=== PATIENT | female | born 1980 | race Caucasian/White ===

== ENCOUNTER 2021-01-29 23:19 | Emergency (ER) | payer MEDICAID ==
[~2021-01-29] VITALS: Ht 167.6 cm; Wt 65.0 kg
[2021-01-29] MEDS ORDERED: normal saline 1000ML IV soln IVB ONE (23:25)
[2021-01-29 23:39] LABS: BASOPHILS # (AUTO) 0.2 X10'3 (0-0.2); BASOPHILS % (AUTO) 1.5 % (0-1); EOSINOPHILS # (AUTO) 0.5 X10'3 (0-0.9); EOSINOPHILS % (AUTO) 4.4 % (0-6); HEMATOCRIT 43.7 % (35.0-45.0); HEMOGLOBIN 15.1 g/dl (12.0-16.0); LYMPHOCYTES # (AUTO) 4.2 X10'3 (1.1-4.8); LYMPHOCYTES % (AUTO) 38.8 % (21-51); MEAN CORPUSCULAR HEMOGLOBIN 28.8 PG (27.0-31.0); MEAN CORPUSCULAR HGB CONC 34.7 g/dL (33.0-36.5); MEAN CORPUSCULAR VOLUME 83.1 FL (78-98); MEAN PLATELET VOLUME 7.6 FL (7.4-10.4); MONOCYTES # (AUTO) 0.8 X10'3 (0-0.9); MONOCYTES % (AUTO) 7.7 % (2-12); NEUTROPHILS # (AUTO) 5.2 X10'3 (1.8-7.7); NEUTROPHILS % (AUTO) 47.6 % (42-75); PLATELET COUNT 401 X10'3 (140-440); RED BLOOD COUNT 5.26 X10'6 (4.20-5.60); WHITE BLOOD COUNT 10.9 X10'3 (4.5-11.0)
[2021-01-29 23:48] LABS: ALANINE AMINOTRANSFERASE 15 U/L (12-78); ALBUMIN 3.6 G/DL (3.4-5.0); ALKALINE PHOSPHATASE 85 IU/L (46-116); ANION GAP 6 (8-16); ASPARTATE AMINO TRANSFERASE 13 U/L (10-37); BILIRUBIN,TOTAL 0.5 MG/DL (0.1-1.0); BLOOD UREA NITROGEN 12 MG/DL (7-18); BUN/CREATININE RATIO 11.8 (6.6-38.0); CALCIUM 8.1 MG/DL (8.5-10.1); CHLORIDE 105 MMOL/L (99-107); CREATININE 1.02 MG/DL (0.40-0.90); ETHANOL < 0.010 GM/DL (0.0-0.010); GLUCOSE 127 MG/DL (70-104); POTASSIUM 3.5 MMOL/L (3.5-5.1); SODIUM 138 MMOL/L (135-145); TOTAL CARBON DIOXIDE 27.4 MMOL/L (24-32); TOTAL PROTEIN 7.3 G/DL (6.4-8.2); eGFR 60 ML/MIN
[2021-01-30] MEDS ORDERED: naloxone 2mg/2ml inj IV STA (00:01)
[2021-01-30] MEDS ORDERED: proCHLORperazine 10 MG/2 ml inj IV ONE (00:30)
[2021-01-30 00:57] VITALS: BP 114/80
--- NOTE | 2021-01-30 01:30 | NUR ---
PATIENT WAS ABLE TO DRINK 240mL OF WATER WITH OUT ISSUE po CHALLENGE COMPLETE DR. Ayers AWARE DC READY
== END 2021-01-30 01:45 | disposition home or self-care (01) ==
LOC: ER 23:19
DX: T40.411A Poisoning by fentanyl or fentanyl analogs, accidental (unintentional), initial encounter (principal); J96.01 Acute respiratory failure with hypoxia; J45.909 Unspecified asthma, uncomplicated; G89.29 Other chronic pain; F14.90 Cocaine use, unspecified, uncomplicated; Y92.89 Other specified places as the place of occurrence of the external cause
CPT/HCPCS: 36415; 71045; 80053; 80320; 85025; 93005; 96361; 96374; 99285; J0780; J7030

== ENCOUNTER 2024-12-09 03:18 | Emergency (ER) | payer MEDICAID ==
[~2024-12-09] VITALS: Ht 167.6 cm; Wt 70.5 kg
[2024-12-09 03:54] VITALS: BP 127/84; PULSE 67; RESP 16; TEMP 98.8; O2SAT 100
== END 2024-12-09 05:21 | disposition left against medical advice (07) ==
LOC: ER 03:19
DX: H57.13 Ocular pain, bilateral (principal); Z53.21 Procedure and treatment not carried out due to patient leaving prior to being seen by health care provider